=== PATIENT | male | born 1980 | race Two or more races ===

== ENCOUNTER 2017-08-10 12:29 | Emergency (ER) | payer SELFPAY ==
[~2017-08-10] VITALS: Ht 188 cm; Wt 99.8 kg
--- NOTE | 2017-08-10 14:16 | Emergency Room Report ---
History of Present Illness General Chief Complaint: Behavioral Complaint Source: Patient Present Illness HPI 37-year-old male unknown past medical history found on street by EMS brought into the emergency room. Patient is sleeping comfortably however arousable, not give a good history, states that he does drugs but not getting good history , when asked about lower extremity swelling states that it has been there for a long time. 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, 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, sleeping comfortably non-acute distress, not providing good history Head: normocephalic, atraumatic Eyes: bilateral eye normal inspection, bilateral eye PERRL, bilateral eye EOMI ENT: normal ENT inspection, normal pharynx, normal voice, moist mucus membranes Neck: normal inspection, full range of motion, supple Respiratory: normal inspection, lungs clear, normal breath sounds, no respiratory distress, no retraction, no wheezing, speaking full sentences, chest symmetrical Cardiovascular #1: normal inspection, regular rate, rhythm, no edema, normal capillary refill Cardiovascular #2: 2+ radial (R), 2+ radial (L) Gastrointestinal: normal inspection, non tender, soft, non-distended, no guarding Musculoskeletal: normal inspection, back normal, normal range of motion, non- tender, other - b/l LE 1+ edema nontender Neurologic: responsive, motor strength/tone normal, sensory intact, other - Not cooperating with neurological exam, likely intoxicated, however moving all 4 extremities spontaneously Psychiatric: normal inspection, judgement/insight normal, memory normal Skin: normal inspection, normal color, no rash, warm/dry, well hydrated, normal turgor Medical Decision Making ER Course 37-year-old male, homeless, found on street Also with lower ext swelling for a long time DDX: No history or signs of trauma Likely alcohol intoxication, meth use, other drug use Lower extremity swelling could be secondary to venous insufficiency, nontender, this time no concern cellulitis Plan: Obtain labs, alcohol level, IVF, pending sobriety ER course: Patient has remained stable during ED stay. Has been sleeping comfortably Disposition: Signed out patient 37 yo M likely tox/alcohol intox/homelessness pending labs likely DC home not altered, saying he wants to sleep Please note that this Emergency Department Report was dictated using [employer] software, occasionally this can lead to erroneous entry secondary to interpretation by the dictation equipment Last Vital Signs Date Time Temp Pulse Resp B/P (MAP) Pulse Ox O2 Delivery O2 Flow Rate FiO2 08/10/17 12:22 97.9 100 16 104/59 97 Room Air Referrals: NOT CHOSEN IPA/,REFERRING (PCP) Flakita Salcedo M.D. Aug 10, 2017 14:16
[2017-08-10 14:35] LABS: BASOPHILS % (AUTO) 1.1 % (0.0-2.0); EOSINOPHILS % (AUTO) 2.2 % (0.0-3.0); LYMPHOCYTES % (AUTO) 16.1 % (20.0-45.0); MEAN CORPUSCULAR HEMOGLOBIN 27.1 PG (27.0-31.0); MEAN CORPUSCULAR HGB CONC 32.6 G/DL (32.0-36.0); MEAN CORPUSCULAR VOLUME 83 FL (80-99); MEAN PLATELET VOLUME 5.6 FL (6.5-10.1); MONOCYTES % (AUTO) 3.6 % (1.0-10.0); PLATELET COUNT 499 K/UL (150-450); RED BLOOD COUNT 4.84 M/UL (4.70-6.10); RED CELL DISTRIBUTION WIDTH 13.4 % (11.6-14.8); WHITE BLOOD COUNT 8.1 K/UL (4.8-10.8)
[2017-08-10 14:59] LABS: ALANINE AMINOTRANSFERASE 16 U/L (12-78); ALBUMIN/GLOBULIN RATIO 0.5 (1.0-2.7); ALCOHOL 235 mg/dL; ANION GAP 9 mmol/L (5-15); ASPARTATE AMINO TRANSFERASE 18 U/L (15-37); CALCIUM 8.9 MG/DL (8.5-10.1); CARBON DIOXIDE 26 MMOL/L (21-32); CHLORIDE 107 MMOL/L (98-107); GLOMERULAR FILTRATION RATE > 60 mL/min (>60); POTASSIUM 3.7 MMOL/L (3.5-5.1); SODIUM 142 MMOL/L (136-145); TOTAL PROTEIN 8.6 G/DL (6.4-8.2)
[2017-08-10 15:00] LABS: ACETAMINOPHEN 0 MCG/ML (10-30)
[2017-08-10 16:41] VITALS: BP 118/71
[2017-08-10 18:29] VITALS: BP 114/77
[2017-08-10 19:20] VITALS: BP 117/79
[2017-08-10 21:00] VITALS: BP 116/80
[2017-08-10 21:02] VITALS: BP 117/79
== END 2017-08-10 21:02 | disposition home or self-care (01) ==
LOC: EDBD 12:29 → EMR 13:00
DX: R60.9 Edema, unspecified (principal); Z59.0 Homelessness; F10.129 Alcohol abuse with intoxication, unspecified
CPT/HCPCS: 36415; 80053; 82962; 85025; 99284; G0480; 80329